=== PATIENT | female | born 1945 | race Caucasian/White ===

== ENCOUNTER 2016-11-28 11:09 | Inpatient (IN) ==
[2016-11-28] MEDS ORDERED: 0.9 % SODIUM CHLORIDE 1,000 ML IV ONE (11:49)
[2016-11-28] MEDS ORDERED: ONDANSETRON 4 MG/2 ML VIAL IV ONE (11:49)
[2016-11-28] MEDS ORDERED: cefTRIAXone 1 GM in DEXTROSE 5% IN WATER 50 ML IV ONE (11:49)
--- NOTE | 2016-11-28 11:53 | Emergency Department Note ---
Weakness HPI - General Chief complaint: Weakness Stated complaint: chills, cough, vomitting Time Seen by Provider: 11/28/16 11:48 Source: patient Mode of arrival: ambulatory Limitations: no limitations - History of Present Illness HPI Narrative: 71-year-old female with 3 week history of cough congestion fever chills nausea vomiting and weakness. She has no shortness of breath and was diagnosed with bronchitis was given steroids and breathing treatments which did help relieve the shortness of breath but now her predominant complaint is weakness. She has been seen [facility] because her primary care been out of town. She states she has not been on antibiotics for this problem here in the last 2 months chest x-ray was done yesterday at [place] which was negative for acute abnormality- reviewed report. flu swab was also negative - Related Data Home Medications Medication Instructions Recorded Confirmed Albuterol Sulfate [Proair Hfa] 8.5 gm IH Q4-6HP PRN 11/28/16 11/28/16 Benzonatate 100 mg PO TID 11/28/16 11/28/16 Levothyroxine Sodium [Synthroid] 50 mcg PO DAILY 11/28/16 11/28/16 Metoprolol Tartrate 25 mg PO QDAY 11/28/16 11/28/16 Mometasone/Formoterol [Dulera 200 2 puff IH BID 11/28/16 11/28/16 Mcg/5 Mcg Inhaler] Naproxen 500 mg PO BID 11/28/16 11/28/16 Ramipril [Altace] 1.25 mg PO DAILY 11/28/16 11/28/16 Rosuvastatin [Crestor] 10 mg PO HS 11/28/16 11/28/16 metFORMIN [Glucophage] 500 mg PO BIDCC 11/28/16 11/28/16 Allergies Allergy/AdvReac Type Severity Reaction Status Date / Time acetaminophen [From ] Allergy Severe SHOCK, Verified 11/28/16 11:13 BLOOD PRESSURE DROPS losartan [LOSARTAN] Allergy Severe Unknown Verified 11/28/16 11:13 propoxyphene [From ] Allergy Intermediate VOMITING/RA Verified 11/28/16 11:13 SH hydrochlorothiazide Allergy Mild RASH Verified 11/28/16 11:13 [HYDROCHLOROTHIAZIDE] Sulfa (Sulfonamide Allergy Mild RASH Verified 11/28/16 11:13 Antibiotics) [SULFA(SULFONAMIDE ANTIBIOTICS)] amlodipine [AMLODIPINE] AdvReac Severe Palpitation Verified 11/28/16 17:21 s codeine [CODEINE] AdvReac Mild VOMITING Verified 11/28/16 17:21 scopolamine [SCOPOLAMINE] AdvReac Mild Vomiting Verified 11/28/16 17:21 Review of Systems All systems ED: reviewed and negative except as stated. Past Medical History - Past Medical History Attestation: Yes: The following information was validated with the patient. Medical history: Reports: asthma, diabetes, hyperlipidemia, hypertension, thyroid disease Surgical history ED: Reports: appendectomy, tonsillectomy - Social History smoking status: Never smoker Exposure to secondhand smoke: Yes Physical Exam Overweight female, distraught frustrated with healthcare situation but no other distress. Normocephalic atraumatic. Conjunctiva clear sclerae white and anicteric. No nasal discharge or congestion. Oropharynx pink and moist. Postnasal drip. Neck is supple without lymphadenopathy thyromegaly or carotid bruit. Lungs are clear to auscultation bilaterally without wheezes rales rhonchi or respiratory distress. Heart is regular rhythm but somewhat tachycardic on the monitor about 115. Congruent radial pulse + 2 no pedal edema. Abdomen is soft nontender nondistended no CVA tenderness peritoneal signs or guarding. Normoactive bowel sounds. Alert oriented. Depressed mood - General Limitations: no limitations Course Vital Signs Temperature 97.3 F L 11/28/16 11:10 Pulse Rate 116 H 11/28/16 11:10 Respiratory Rate 16 11/28/16 11:10 Blood Pressure 119/69 11/28/16 11:10 Pulse Oximetry (%) 96 11/28/16 11:10 Temperature 98.4 F 11/28/16 17:42 Pulse Rate 100 H 11/28/16 20:43 Respiratory Rate 21 11/28/16 20:43 Blood Pressure 120/54 11/28/16 17:42 Pulse Oximetry (%) 94 11/28/16 20:43 Weakness - Lab Data Lab results reviewed: Yes I reviewed the patient's lab results. Result diagrams: 11/28/16 11:59 11/28/16 11:59 Lab Results 11/28/16 11/28/16 11/28/16 Range/Units 11:59 11:59 11:59 WBC 18.5 H (4.5-11.0) K/mcL RBC 4.71 (4.00-5.20) M/mcL Hgb 12.8 (12.0-15.0) g/dL Hct 39.4 (36.0-48.0) % MCV 83.6 (80.0-100.0) fL MCH 27.2 (26.0-34.0) pg MCHC 32.6 (31.0-36.0) g/dL RDW 15.7 H (11.5-14.5) % Plt Count 275 (140-440) K/mcL MPV 9.0 (7.4-10.4) fL Gran % 91.7 H (38.0-78.0) % Lymph % (Auto) 2.5 L (15.5-49.0) % [place] % (Auto) 5.8 (1.0-9.0) % Eos % (Auto) 0 (0.0-7.0) % Baso % (Auto) 0 (0.0-2.0) % Gran # 17.0 H (1.8-8.0) K/mcL Lymph # 0.5 L (1.5-4.8) K/mcL [place] # 1.1 H (0.1-0.9) K/mcL Eos # 0 (0.0-0.7) K/mcL Baso # 0 (0.0-0.3) K/mcL ESR 94 H (0-20) mm/hr VBG Lactic Acid (0.5-2.2) mmol/L Sodium 131 L (133-145) mmol/L Potassium 3.8 (3.3-5.1) mmol/L Chloride 90 L (96-108) mmol/L Carbon Dioxide 23 (22-30) mmol/L Anion Gap 18.0 H (8-16) BUN 23 (8-23) mg/dl Creatinine 1.4 H (0.6-1.1) mg/dl GFR Calculation 38 Glucose 343 H (70-105) mg/dL Hemoglobin A1c (4.0-6.0) % HGB Estim Average Glucose mg/dL Calcium 9.5 (8.6-10.4) mg/dl Total Bilirubin 0.9 (0.0-1.0) mg/dL AST 13 (0-37) U/l ALT 21 (0-40) U/l Alkaline Phosphatase 147 H (39-117) U/L C-Reactive Protein (0.0-0.8) mg/dl Total Protein 7.4 (5.9-8.4) gm/dL Albumin 4.0 (3.2-5.2) gm/dL Globulin 3.4 (2.2-3.7) gm/dL Albumin/Globulin Ratio 1.2 (1.0-2.3) Urine Color Urine Appearance Urine pH (5.0-9.0) Ur Specific [place] (1.000-1.035) Urine Protein (NEG) mg/dL Urine Glucose (UA) (NEG) mg/dL Urine Ketones (NEG) mg/dL Urine Occult Blood (<0.03) mg/dL Urine Nitrate (NEG) Urine Bilirubin (NEG) mg/dL Urine Urobilinogen (NEG) mg/dL Ur Leukocyte Esterase (NEG) /uL Urine RBC (0-1) /hpf Urine WBC (0-4) /hpf Ur Squamous Epith Cells (0-4) /hpf Urine Bacteria (0) /hpf Urine Mucus (0) /hpf Ur Culture Indicated? 11/28/16 11/28/16 11/28/16 Range/Units 11:59 11:59 12:29 WBC (4.5-11.0) K/mcL RBC (4.00-5.20) M/mcL Hgb (12.0-15.0) g/dL Hct (36.0-48.0) % MCV (80.0-100.0) fL MCH (26.0-34.0) pg MCHC (31.0-36.0) g/dL RDW (11.5-14.5) % Plt Count (140-440) K/mcL MPV (7.4-10.4) fL Gran % (38.0-78.0) % Lymph % (Auto) (15.5-49.0) % [place] % (Auto) (1.0-9.0) % Eos % (Auto) (0.0-7.0) % Baso % (Auto) (0.0-2.0) % Gran # (1.8-8.0) K/mcL Lymph # (1.5-4.8) K/mcL [place] # (0.1-0.9) K/mcL Eos # (0.0-0.7) K/mcL Baso # (0.0-0.3) K/mcL ESR (0-20) mm/hr VBG Lactic Acid (0.5-2.2) mmol/L Sodium (133-145) mmol/L Potassium (3.3-5.1) mmol/L Chloride (96-108) mmol/L Carbon Dioxide (22-30) mmol/L Anion Gap (8-16) BUN (8-23) mg/dl Creatinine (0.6-1.1) mg/dl GFR Calculation Glucose (70-105) mg/dL Hemoglobin A1c 8.7 H (4.0-6.0) % HGB Estim Average Glucose 203 mg/dL Calcium (8.6-10.4) mg/dl Total Bilirubin (0.0-1.0) mg/dL AST (0-37) U/l ALT (0-40) U/l Alkaline Phosphatase (39-117) U/L C-Reactive Protein 27.9 H (0.0-0.8) mg/dl Total Protein (5.9-8.4) gm/dL Albumin (3.2-5.2) gm/dL Globulin (2.2-3.7) gm/dL Albumin/Globulin Ratio (1.0-2.3) Urine Color Yellow Urine Appearance Turbid Urine pH 5.0 (5.0-9.0) Ur Specific [place] 1.021 (1.000-1.035) Urine Protein 100 A (NEG) mg/dL Urine Glucose (UA) 150 A (NEG) mg/dL Urine Ketones 5/tr A (NEG) mg/dL Urine Occult Blood 0.03 A (<0.03) mg/dL Urine Nitrate Neg (NEG) Urine Bilirubin Neg (NEG) mg/dL Urine Urobilinogen Neg (NEG) mg/dL Ur Leukocyte Esterase 500 A (NEG) /uL Urine RBC 61 H (0-1) /hpf Urine WBC > 182 H (0-4) /hpf Ur Squamous Epith Cells 76 H (0-4) /hpf Urine Bacteria Many A (0) /hpf Urine Mucus Mod (0) /hpf Ur Culture Indicated? No 11/28/16 Range/Units 13:07 WBC (4.5-11.0) K/mcL RBC (4.00-5.20) M/mcL Hgb (12.0-15.0) g/dL Hct (36.0-48.0) % MCV (80.0-100.0) fL MCH (26.0-34.0) pg MCHC (31.0-36.0) g/dL RDW (11.5-14.5) % Plt Count (140-440) K/mcL MPV (7.4-10.4) fL Gran % (38.0-78.0) % Lymph % (Auto) (15.5-49.0) % [place] % (Auto) (1.0-9.0) % Eos % (Auto) (0.0-7.0) % Baso % (Auto) (0.0-2.0) % Gran # (1.8-8.0) K/mcL Lymph # (1.5-4.8) K/mcL [place] # (0.1-0.9) K/mcL Eos # (0.0-0.7) K/mcL Baso # (0.0-0.3) K/mcL ESR (0-20) mm/hr VBG Lactic Acid 1.6 (0.5-2.2) mmol/L Sodium (133-145) mmol/L Potassium (3.3-5.1) mmol/L Chloride (96-108) mmol/L Carbon Dioxide (22-30) mmol/L Anion Gap (8-16) BUN (8-23) mg/dl Creatinine (0.6-1.1) mg/dl GFR Calculation Glucose (70-105) mg/dL Hemoglobin A1c (4.0-6.0) % HGB Estim Average Glucose mg/dL Calcium (8.6-10.4) mg/dl Total Bilirubin (0.0-1.0) mg/dL AST (0-37) U/l ALT (0-40) U/l Alkaline Phosphatase (39-117) U/L C-Reactive Protein (0.0-0.8) mg/dl Total Protein (5.9-8.4) gm/dL Albumin (3.2-5.2) gm/dL Globulin (2.2-3.7) gm/dL Albumin/Globulin Ratio (1.0-2.3) Urine Color Urine Appearance Urine pH (5.0-9.0) Ur Specific [place] (1.000-1.035) Urine Protein (NEG) mg/dL Urine Glucose (UA) (NEG) mg/dL Urine Ketones (NEG) mg/dL Urine Occult Blood (<0.03) mg/dL Urine Nitrate (NEG) Urine Bilirubin (NEG) mg/dL Urine Urobilinogen (NEG) mg/dL Ur Leukocyte Esterase (NEG) /uL Urine RBC (0-1) /hpf Urine WBC (0-4) /hpf Ur Squamous Epith Cells (0-4) /hpf Urine Bacteria (0) /hpf Urine Mucus (0) /hpf Ur Culture Indicated? Disposition Clinical Impression: Sepsis Qualifiers: Sepsis type: sepsis due to unspecified organism Qualified Code(s): A41.9 - Sepsis, unspecified organism UTI (urinary tract infection) Qualifiers: Urinary tract infection type: acute cystitis Hematuria presence: with hematuria Qualified Code(s): N30.01 - Acute cystitis with hematuria Summary: Patient initially worked up for sepsis because of fever significant weakness and low blood pressure. Started fluid resuscitation while getting laboratory including lactic acid and cultures Found to have a UTI with sepsis. Start antibiotics. Discussed case with Dr. Floyd who agreed to accept patient in transfer to ICU for further care Anesthesia called to start central line prior to admission Disposition: Xfer As Inpt ([facility]) Condition: Critical
[2016-11-28 12:34] LABS: Basophils # (Auto) 0 K/mcL (0.0-0.3); Basophils % (Auto) 0 % (0.0-2.0); Eosinophils # (Auto) 0 K/mcL (0.0-0.7); Eosinophils % (Auto) 0 % (0.0-7.0); Granulocytes % (Auto) 91.7 % (38.0-78.0); Lymphocytes # (Auto) 0.5 K/mcL (1.5-4.8); Lymphocytes % (Auto) 2.5 % (15.5-49.0); Mean Cell Volume 83.6 fL (80.0-100.0); Mean Corpuscular HGB Conc 32.6 g/dL (31.0-36.0); Mean Corpuscular Hemoglobin 27.2 pg (26.0-34.0); Monocytes # (Auto) 1.1 K/mcL (0.1-0.9); Monocytes % (Auto) 5.8 % (1.0-9.0); Platelet Count 275 K/mcL (140-440); RBC 4.71 M/mcL (4.00-5.20); Red Cell Distribution Width 15.7 % (11.5-14.5)
[2016-11-28 12:49] LABS: Appearance,Urine TURBID; Bacteria,Urine MANY /hpf (0); Bilirubin,Urine NEG (NEG); Color,Urine YELLOW; Glucose,Urine (UA) 150 mg/dL (NEG); Leukocyte Esterase,Urine 500 /uL (NEG); Mucus,Urine MOD /hpf (0); Nitrate,Urine NEG (NEG); Protein,Urine 100 mg/dL (NEG); Specific Gravity,Urine 1.021 (1.000-1.035); Urine Blood 0.03 mg/dL (<0.03); Urine RBC 61 /hpf (0-1); Urine Squamous Epithelial Cell 76 /hpf (0-4); Urine WBC > 182 /hpf (0-4); Urobilinogen,Urine NEG (NEG)
[2016-11-28 13:04] LABS: ALT/SGPT 21 U/l (0-40); Albumin/Globulin Ratio 1.2 (1.0-2.3); Alkaline Phosphatase 147 U/L (39-117); Blood Urea Nitrogen 23 mg/dl (8-23)
[2016-11-28] MEDS ORDERED: 0.9 % SODIUM CHLORIDE 2,000 ML IV ONE (13:49)
[2016-11-28] MEDS ORDERED: LEVOFLOXACIN 500 MG/100 ML BAG IV ONE (13:56)
--- NOTE | 2016-11-28 15:43 | XRay Report ---
HISTORY: Reason for Exam:post central line placement FINDINGS: A right internal jugular catheter has been inserted into the superior vena cava. No pneumothorax or pleural effusion are present. The lungs are clear. The heart is borderline enlarged but magnified by AP technique. There is no congestive heart failure. IMPRESSION: No complication following central line placement Interpreted and Authenticated by: Marlon Logan 11/28/16
[2016-11-28] MEDS ORDERED: MAGNESIUM SULFATE 2 GM/50 ML BAG IV PRN (15:46)
[2016-11-28] MEDS ORDERED: ACETAMINOPHEN 1,000 MG/100 ML BOTTLE IV PRN (15:46)
[2016-11-28] MEDS ORDERED: ACETAMINOPHEN 325 MG TABLET PO PRN (15:46)
[2016-11-28] MEDS ORDERED: VANCOMYCIN PER PHARMACY IV ONE (15:46)
[2016-11-28] MEDS ORDERED: POTASSIUM CHLORIDE 20 MEQ PACKET PO PRN (15:46)
[2016-11-28] MEDS ORDERED: NALOXONE HCL 0.4 MG/ML VIAL IV ONE (15:49)
[2016-11-28] MEDS ORDERED: DEXTROSE 50% 50 ML VIAL IV PRN (15:51)
[2016-11-28] MEDS ORDERED: VASOPRESSIN 20 UNIT in DEXTROSE 5% IN WATER 99 ML IV PRN (16:00)
[2016-11-28] MEDS ORDERED: NOREPINEPHRINE BITARTRATE 16 MG in 0.9 % SODIUM CHLORIDE 234 ML IV PRN (16:00)
[2016-11-28 16:25] LABS: C-Reactive Protein 27.9 mg/dl (0.0-0.8)
--- NOTE | 2016-11-28 16:41 | Ultrasound Report ---
History: Urinary tract infection and obstructive uropathy Findings: The right kidney measures 4.6 x 4.9 x 9.4 cm. The left measures 5.0 x 6.1 x 11.6 cm. There is no evidence of mass, cyst, calculus, hydronephrosis or inflammation in either kidney. Doppler shows flow of urine through both ureters into the bladder. Before voiding the bladder contained 495 cc of urine. There is no mass within the lumen. After voiding there was complete emptying. Impression: Normal exam Dr. Romero was called with results Interpreted and Authenticated by: Marlon Logan 11/28/16
[2016-11-28] MEDS: 0.9 % SODIUM CHLORIDE 1,000 ML IV SCH (17:54)
[2016-11-28] MEDS: INSULIN LISPRO 1 UNIT/0.01 ML UNIT SQ SCH ×2 (17:57→22:20)
[2016-11-28] MEDS: CEFEPIME 2 GM in DEXTROSE 5% IN WATER 50 ML IV SCH (17:57)
[2016-11-28] MEDS ORDERED: LEVOFLOXACIN 250 MG/50 ML BAG IV ONE (18:00)
[2016-11-28 18:15] LABS: Hemoglobin A1C 8.7 % HGB (4.0-6.0)
[2016-11-28] MEDS: VANCOMYCIN 1,500 MG in 0.9 % SODIUM CHLORIDE 500 ML IV SCH (19:10)
[2016-11-28] MEDS ORDERED: traMADol 50 MG TABLET PO PRN (20:12)
[2016-11-28] MEDS: IPRATROPIUM/ALBUTEROL 3 ML AMPUL.NEB NEB SCH ×2 (20:20→23:20)
[2016-11-28] MEDS: BUDESONIDE 0.5 MG/2 ML AMPUL.NEB NEB SCH (20:41)
[2016-11-28] MEDS ORDERED: SENNOSIDES/DOCUSATE SODIUM 1 TAB TABLET PO SCH (21:00)
[2016-11-28] MEDS: HEPARIN 5,000 UNIT/ML VIAL SQ SCH (22:19)
[2016-11-28] MEDS: DOCUSATE SODIUM 100 MG CAPSULE PO SCH (22:20)
[2016-11-28] MEDS: 0.9 % SODIUM CHLORIDE 10 ML SYRINGE IV SCH (22:21)
[2016-11-29] MEDS: IPRATROPIUM/ALBUTEROL 3 ML AMPUL.NEB NEB SCH ×6 (02:55→23:23)
--- NOTE | 2016-11-29 05:49 | History and Physical Report ---
DATE OF ADMISSION: 11/28/2016 DATE OF ADMISSION: 11/28/2016 REASON FOR ADMISSION: Shortness of breath, nausea, vomiting, and weakness. HISTORY OF CHIEF COMPLAINT: Rosa is a 71-year-old who comes to [facility] emergency room with roughly a few weeks onset of worsening shortness of breath, weakness, fatigue, lethargy along with associated nausea. The patient was diagnosed with bronchitis at [facility] and was started on prednisone. However, the symptoms after initial improvement continued to deteriorate wherein she was unable to perform activities of daily living due to severe exhaustion and shortness of breath. She, however, denies PND, orthopnea, diarrhea. She has difficulty urinating over the last couple of days. She further denies abdominal pain, chest pain, palpitation, headache, or photophobia. She endorses to shaking chills, drenching sweats, and fever over the last 24 hours. She also had mild left flank pain which was short-lived and episodic over the last 24 hours. Initial workup in the ER was significant for pyuria along with a white count over 18,500, blood pressures in the 60s. The patient was promptly started on crystalloids central line was placed in the ER and was continued resuscitation until systolics improved to around 100. In the light of septic shock, hospitalist service was consulted. At the time of examination, the patient is able to answer some of the questions. She is fairly distressed but lucid, cooperative. REVIEW OF SYSTEMS: She was able to participate in the review of systems. A 10-point review of system was performed and is negative except the ones discussed above. PAST MEDICAL HISTORY: 1. Hyperlipidemia. 2. Diabetes. 3. Degenerative joint disease. 4. Hypothyroidism. 5. Bronchitis. 6. Hypertension. CURRENT MEDICATION: Metoprolol 25. Ramipril 1.25. Albuterol as needed. Levothyroxine 50. Naproxen 500. Metformin 500 mg twice daily. Benzonatate 100 3 times per day. Dulera inhaled twice daily. Rosuvastatin 10. ALLERGIES: 1. AMLODIPINE. 2. LOSARTAN. 3. CODEINE. 4. PROPOXYPHENE. 5. SCOPOLAMINE. 6. HYDROCHLOROTHIAZIDE. 7. SULFA. SOCIAL HISTORY: The patient lives in the [place], fairly independently, alone. She has a son who lives nearby and frequently checks on her. No history of smoking or alcoholism. 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 FULL CODE STATUS. PRIMARY CARE PHYSICIAN: She sees primary care physician Gino Ordaz MD. FAMILY HISTORY: Significant for coronary artery disease and alcoholism in multiple family members on the paternal side. PHYSICAL EXAMINATION: GENERAL: The patient is in a fair amount of distress, short of breath; however, cooperative. BMI 41.85, height 5 feet 2 inches. VITAL SIGNS: Blood pressure improving from 80s/ 66 to 105/66, respiratory rate 27, temperature 97.5, pulse 103, saturations 92 percent on room air. HEENT: Pupils symmetric. Oral cavity is dry. No ear or nose discharge. Head is normocephalic and atraumatic. NECK: No lymphadenopathy, bruit. CHEST: S1, S2, tachycardia. ESM grade 1. Diminished breath sounds bilateral bases, expiratory rhonchi. ABDOMEN: Soft and nontender. LOWER EXTREMITIES: No cyanosis or clubbing. No joint swelling. Normal range of motion of the joints. No lymphedema. SKIN: No suspicious lesions. PSYCHIATRIC: Anxious, fatigued, but cooperative. No agitation. NEURO: Nonfocal. Limited neuro exam revealed normal higher function. LABS AND IMAGING: White count 18.5, hemoglobin 12.8, neutrophils 92 percent. ESR 94. Lactic acid 1.6, sodium 131, potassium 3.8, creatinine 1.4, BUN 23. A1c 8.7. CRP 27. UA is significant pyuria and many bacteria. ASSESSMENT AND PLAN: A 71-year-old admitted with complicated urinary tract infection and severe sepsis/septic shock and end-organ dysfunction. Initial CRAIG II score over 16. 1. Septic shock. Continue crystalloids, target MAP over 65, use vasopressors as indicated. Continue broad antibiotic coverage including levofloxacin, cefepime, vancomycin for empiric coverage of enterococci and gram negatives. Antibiotics will be deescalated based on culture results. 2. Complicated urinary tract infection. Negative renal ultrasound for obstructive uropathy/pyelo. Continue antibiotic coverage. 3. Mild acute kidney injury. Continue monitoring renal function, likely secondary to sepsis end organ effect. Baseline creatinine 0.6. 4. Poorly controlled diabetes mellitus type 2 with A1c 8.7. Continue sitagliptin/prandial insulin. 5. History of hyperlipidemia. Continue statin. 6. Hypothyroidism. Continue thyroxine. 7. Hypertension. At this time, all medications will be held until the patient's septic shock resolves and improvement end organ perfusion. PLAN FOR TODAY: 1. Admit in ICU in light of septic shock and multiple end organ dysfunction. 2. Broad antibiotic coverage. 3. Close hemodynamic monitoring including renal function monitoring. 4. Preexisting medical condition management as above. TIME SPENT: Over 35 minutes critical care on management of septic shock, central line has been secured. Initiate vasopressors including Vasopressin and Levophed to keep MAP at goal. Additional 55 minutes on history and physical. AA: Job ID: [id number] Doc ID: [id number] Savage Porter MD MTDD
[2016-11-29] MEDS: 0.9 % SODIUM CHLORIDE 10 ML SYRINGE IV SCH ×3 (05:55→21:53)
[2016-11-29] MEDS: ONDANSETRON 4 MG/2 ML VIAL IV PRN ×2 (06:14→14:07)
[2016-11-29 06:34] LABS: Mean Cell Volume 85.4 fL (80.0-100.0); Mean Corpuscular HGB Conc 32.6 g/dL (31.0-36.0); Mean Corpuscular Hemoglobin 27.8 pg (26.0-34.0); Platelet Count 202 K/mcL (140-440); RBC 3.59 M/mcL (4.00-5.20); Red Cell Distribution Width 15.5 % (11.5-14.5)
[2016-11-29 06:54] LABS: ALT/SGPT 14 U/l (0-40); Albumin/Globulin Ratio 1.1 (1.0-2.3); Alkaline Phosphatase 98 U/L (39-117); Bilirubin,Direct < 0.2 mg/dL (0.0-0.3); Blood Urea Nitrogen 16 mg/dl (8-23); Gamma Glutamyl Transpeptidase 84 U/L (5-36); Magnesium 1.4 mg/dL (1.6-2.5); Phosphorous 2.3 mg/dL (2.7-4.5); Uric Acid 4.9 mg/dL (2.5-8.0)
[2016-11-29] MEDS: INSULIN LISPRO 1 UNIT/0.01 ML UNIT SQ SCH ×4 (07:11→21:51)
[2016-11-29 07:49] LABS: Band Neutrophils % 3 % (0-10); Lymphocytes % 6 % (15-49); Monocytes % (Manual) 10 % (1-9); Platelet Estimate NORMAL (NORMAL); RBC Morphology NORMAL (NORMAL); Segmented Neutrophils % 81 % (38-78)
[2016-11-29] MEDS: HEPARIN 5,000 UNIT/ML VIAL SQ SCH (08:09)
[2016-11-29] MEDS: DOCUSATE SODIUM 100 MG CAPSULE PO SCH (08:10)
[2016-11-29] MEDS: CEFEPIME 2 GM in DEXTROSE 5% IN WATER 50 ML IV SCH (08:11)
[2016-11-29] MEDS: BUDESONIDE 0.5 MG/2 ML AMPUL.NEB NEB SCH (08:31)
[2016-11-29] MEDS ORDERED: sitaGLIPtin 100 MG TABLET PO SCH (09:00)
[2016-11-29] MEDS ORDERED: MULTIVIT,THER IRON,CA,FA & MIN 1 TABLET PO SCH (09:00)
[2016-11-29] MEDS: VANCOMYCIN 1,500 MG in 0.9 % SODIUM CHLORIDE 500 ML IV SCH (12:22)
[2016-11-29] MEDS: 0.9 % SODIUM CHLORIDE 1,000 ML IV SCH (12:29)
--- NOTE | 2016-11-29 14:52 | Internal Med Progress Note ---
Medical - PN: Subj Patient information: Note initiated : 11/29/16 at 2:49 pm Service Date, if different from initiated Date: [] Patient: Rosa Wilder 71 y/o F admitted on 11/28/16 for Chills, Cough, Vomiting/UTI, Severe Sepsis. Chief Complaint: [] Interval history: 11/28- patient admitted with septic shock/complicated UTI ith extensive pyuria. Admitted to ICU. Aggressive crystalloids to keep map at goal. negative renal ultrasound. await culture sensitivities. Septic shock management per guidelines. white count 18.5. acute renal failure creatinine 1.4 11/29- patient doing well. No overnight events. No concerns per staff. improved mentation. persistent tachycardia but stable hemodynamics. Map at goal. escherichia coli on urine culture. white count down to11.5. creatinine improved to 1.1. low phosphorus and magnesium start replacement. - Constitutional Vitals: Vital Signs Temp Pulse Resp BP Pulse Ox 99.2 F 113 H 29 H 121/70 93 11/29/16 12:00 11/29/16 12:00 11/29/16 12:00 11/29/16 12:00 11/29/16 12:00 Period Temp Pulse Resp BP Sys/Tovar Pulse Ox Last 24 Hr 97.3 F-102.7 F 89-124 18-29 88-145/46-90 90-99 Intake and Output 11/29/16 11/29/16 11/29/16 05:59 13:59 21:59 Intake Total 725 / 725 1079 / 1079 Output Total 400 / 400 900 / 900 Balance 325 / 325 179 / 179 Intake & Output: Intake & Output 11/29/16 11/29/16 11/29/16 05:59 13:59 21:59 Intake Total 725 / 725 1079 / 1079 Output Total 400 / 400 900 / 900 Balance 325 / 325 179 / 179 Intake: IV 550 / 550 1079 / 1079 Sodium Chloride 0.9% 1, 929 / 929 000 ml @ 50 mls/hr IV . Q20H [facility] Rx#:[id number] Dextrose 5% in Water 50 50 / 50 50 / 50 ml @ 100 mls/hr IV DAILY [facility] with Maxipime 2 gm Rx #:[id number] Sodium Chloride 0.9% 500 500 / 500 ml @ 333.3 mls/hr IV DAILY [facility] with Vancomycin 1,500 mg Rx#:[id number] Oral 175 / 175 Output: Void Amount 400 / 400 900 / 900 General appearance: cooperative, no acute distress Exam: clinically improved nonlabored breathing Nontender nondistended abdomen No pallor lymphedema minimal anxiety Medical - PN: Obj Da - Labs CBC & Chem 7: 11/29/16 03:53 11/29/16 03:53 Labs: Abnormal Lab Results 11/29/16 11/29/16 03:53 03:53 WBC 11.5 H RBC 3.59 L Hgb 10.0 L Hct 30.7 L RDW 15.5 H Seg Neutrophils % 81 H Lymphocytes % 6 L Monocytes % (Manual) 10 H Carbon Dioxide 21 L Anion Gap 17.0 H Glucose 255 H Calcium 8.0 L Phosphorus 2.3 L Magnesium 1.4 L GGT 84 H Total Protein 5.8 L Albumin 3.0 L Meds: Medications Albuterol/Ipratropium (Duoneb) 3 ml NEB Q4HRT [facility] Last Admin: 11/29/16 11:20 Dose: 3 ml Budesonide (Pulmicort) 0.5 mg NEB Q12 [facility] Last Admin: 11/29/16 08:31 Dose: 0.5 mg Dextrose (Dextrose 50%) 0 ml IV UD PRN PRN Reason: Hypoglycemia Diagnostic Test (Pha) (Accu-Chek) 1 each FS ACHS [facility] Last Admin: 11/29/16 12:21 Dose: 1 each Docusate Sodium (Colace) 100 mg PO BID [facility] Last Admin: 11/29/16 08:10 Dose: 100 mg Heparin Sodium (Porcine) (Heparin) 5,000 unit SQ Q12 [facility] Last Admin: 11/29/16 08:09 Dose: 5,000 unit Cefepime HCl 2 gm/ Dextrose 50 mls @ 100 mls/hr IV DAILY [facility] Last Infusion: 11/29/16 12:34 Dose: Infused Levofloxacin (Levaquin) 750 mg in 150 mls @ 100 mls/hr IV Q48H [facility] Magnesium Sulfate (Magnesium Sulfate) 2 gm in 50 mls @ 50 mls/hr IV UD PRN PRN Reason: MG = or < 1.7 Last Infusion: 11/29/16 12:33 Dose: Infused Norepinephrine Bitartrate 16 (mg/ Sodium Chloride) 250 mls @ 9.37 mls/hr IV Q24HP PRN; Protocol; 10 MCG/MIN PRN Reason: Titrate to SBP < 180,DBP < 110 Sodium Chloride (Sodium Chloride 0.9%) 1,000 mls @ 50 mls/hr IV .Q20H [facility] Stop: 12/01/16 03:59 Last Admin: 11/29/16 12:29 Dose: 50 mls/hr Vasopressin 20 unit/ Dextrose 100 mls @ 12 mls/hr IV Q8HP PRN; Protocol; 0.04 UNIT/MIN PRN Reason: Titrate to SBP < 180,DBP < 110 Vancomycin HCl 1,500 mg/ (Sodium Chloride) 500 mls @ 333.3 mls/hr IV DAILY [facility] Last Admin: 11/29/16 12:22 Dose: 333.3 mls/hr Insulin Human Lispro (Humalog) 0 unit SQ ACHS [facility] PRN Reason: Protocol Last Admin: 11/29/16 12:21 Dose: 4 unit Iron Carb/Multivit/Airplane Patrol Pilot/Folic Acid (Multivitamin W/Minerals) 1 tab PO DAILY [facility] Last Admin: 11/29/16 08:10 Dose: 1 tab Ondansetron HCl (Zofran) 4 mg IV Q4-6HP PRN PRN Reason: Nausea And Vomiting Last Admin: 11/29/16 14:07 Dose: 4 mg Potassium Chloride (Klor-Con) 40 meq PO DAILYP PRN PRN Reason: K+ < 3.5 Senna/Docusate Sodium (Senna Plus Tablet) 1 tab PO HS [facility] Last Admin: 11/28/16 22:20 Dose: 1 tab Sitagliptin Phosphate (Januvia) 100 mg PO DAILY [facility] Last Admin: 11/29/16 08:16 Dose: 100 mg Sodium Chloride (Saline Flush) 10 ml IV Q8 [facility] Last Admin: 11/29/16 12:33 Dose: 10 ml Tramadol HCl (Ultram) 50 mg PO Q4-6HP PRN PRN Reason: Pain Last Admin: 11/28/16 20:40 Dose: 50 mg Medical - PN: A/P - Time Spent With Patient Total time spent is greater than 50% in coordination of care (as documented) at patient's floor/unit and/or counseling patient: 25 - 35 minutes (1) Severe sepsis with acute organ dysfunction Status: Acute Assessment and plan: * Severe sepsis acute organ dysfunction including acute renal failure. On broad antibiotic coverage * Complicated Escherichia coli UTI-Clinically improving on antibiotic coverage. Continue cefepime/Levaquin. DC vancomycin * dM type II on prandial insulin * history of hypertension restart home medsWith holding parameters * hyperlipidemia on Crestor * DVT prophylaxis on heparin Plan * Antibiotic coverage * sepsis management per guidelines * pre-existing medical condition management as above * Transfer to telemetry Current Visit: Yes Medical - PN: Qual - VTE Deep Vein Thrombosis/Pulmonary Embolism Present on Admission: No
[2016-11-29] MEDS ORDERED: VASOPRESSIN 20 UNIT in DEXTROSE 5% IN WATER 99 ML IV PRN (14:59)
[2016-11-29] MEDS ORDERED: POTASSIUM CHLORIDE 20 MEQ PACKET PO PRN (14:59)
[2016-11-29] MEDS ORDERED: DEXTROSE 50% 50 ML VIAL IV PRN (14:59)
[2016-11-29] MEDS ORDERED: ONDANSETRON 4 MG/2 ML VIAL IV PRN (14:59)
[2016-11-29] MEDS ORDERED: MAGNESIUM SULFATE 2 GM/50 ML BAG IV PRN (14:59)
[2016-11-29] MEDS ORDERED: traMADol 50 MG TABLET PO PRN (14:59)
[2016-11-29] MEDS ORDERED: IBUPROFEN 200 MG TABLET PO PRN (15:43)
[2016-11-29] MEDS ORDERED: SENNOSIDES/DOCUSATE SODIUM 1 TAB TABLET PO SCH (21:00)
[2016-11-29] MEDS ORDERED: DOCUSATE SODIUM 100 MG CAPSULE PO SCH (21:00)
[2016-11-29] MEDS ORDERED: NEUTRA PHOS 1 PACKET PO SCH (21:00)
[2016-11-29] MEDS ORDERED: HEPARIN 5,000 UNIT/ML VIAL SQ SCH (21:00)
[2016-11-29] MEDS ORDERED: BUDESONIDE 0.5 MG/2 ML AMPUL.NEB NEB SCH (21:00)
[2016-11-30] MEDS: IPRATROPIUM/ALBUTEROL 3 ML AMPUL.NEB NEB SCH ×4 (03:55→15:07)
[2016-11-30] MEDS: 0.9 % SODIUM CHLORIDE 10 ML SYRINGE IV SCH ×3 (04:04→22:17)
[2016-11-30 05:08] LABS: Mean Cell Volume 84.3 fL (80.0-100.0); Mean Corpuscular HGB Conc 32.9 g/dL (31.0-36.0); Mean Corpuscular Hemoglobin 27.7 pg (26.0-34.0); Platelet Count 203 K/mcL (140-440); RBC 3.74 M/mcL (4.00-5.20); Red Cell Distribution Width 15.8 % (11.5-14.5)
[2016-11-30 05:32] LABS: ALT/SGPT 16 U/l (0-40); Albumin 3.2 gm/dL (3.2-5.2); Albumin/Globulin Ratio 0.9 (1.0-2.3); Alkaline Phosphatase 116 U/L (39-117); Bilirubin,Direct < 0.2 mg/dL (0.0-0.3); Blood Urea Nitrogen 10 mg/dl (8-23); Gamma Glutamyl Transpeptidase 78 U/L (5-36); Magnesium 2.3 mg/dL (1.6-2.5); Phosphorous 2.5 mg/dL (2.7-4.5); Uric Acid 4.2 mg/dL (2.5-8.0)
[2016-11-30] MEDS ORDERED: VASOPRESSIN 20 UNIT in DEXTROSE 5% IN WATER 99 ML IV PRN (07:24)
[2016-11-30] MEDS ORDERED: IBUPROFEN 200 MG TABLET PO PRN (07:24)
[2016-11-30] MEDS ORDERED: MAGNESIUM SULFATE 2 GM/50 ML BAG IV PRN (07:24)
[2016-11-30] MEDS ORDERED: DEXTROSE 50% 50 ML VIAL IV PRN (07:24)
[2016-11-30] MEDS ORDERED: POTASSIUM CHLORIDE 20 MEQ PACKET PO PRN (07:24)
[2016-11-30] MEDS ORDERED: traMADol 50 MG TABLET PO PRN (07:24)
[2016-11-30] MEDS ORDERED: DIGOXIN 500 MCG/2 ML AMPUL IV ONE (07:24)
[2016-11-30] MEDS ORDERED: METOPROLOL TARTRATE 5 MG/5 ML VIAL IV SCH (07:25)
[2016-11-30] MEDS ORDERED: METOPROLOL TARTRATE 50 MG TABLET PO ONE (07:28)
[2016-11-30 07:43] LABS: Band Neutrophils % 1 % (0-10); Lymphocytes % 8 % (15-49); Monocytes % (Manual) 10 % (1-9); Platelet Estimate NORMAL (NORMAL); RBC Morphology NORMAL (NORMAL); Segmented Neutrophils % 81 % (38-78)
[2016-11-30] MEDS: METOPROLOL TARTRATE 5 MG/5 ML VIAL IV SCH ×2 (07:54→08:10)
[2016-11-30] MEDS: INSULIN LISPRO 1 UNIT/0.01 ML UNIT SQ SCH ×4 (08:21→22:12)
--- NOTE | 2016-11-30 08:55 | XRay Report ---
HISTORY: Reason for Exam:Interval Change- sob FINDINGS: The lungs are clear and well expanded. The heart size is mildly enlarged but magnified by portable technique. There is no congestive heart failure or pleural effusion. The right internal jugular catheter is well-positioned and there is no pneumothorax or widening of the mediastinum. There has been no significant change since 11/28/16. IMPRESSION: No acute abnormality Interpreted and Authenticated by: Marlon Logan 11/30/16
[2016-11-30] MEDS ORDERED: CEFEPIME 2 GM in DEXTROSE 5% IN WATER 50 ML IV SCH (09:00)
[2016-11-30] MEDS ORDERED: BUDESONIDE 0.5 MG/2 ML AMPUL.NEB NEB SCH (09:00)
[2016-11-30] MEDS ORDERED: LEVOFLOXACIN 750 MG/150 ML BAG IV SCH ×3 (09:00)
[2016-11-30] MEDS ORDERED: sitaGLIPtin 100 MG TABLET PO SCH (09:00)
[2016-11-30] MEDS ORDERED: METOPROLOL TARTRATE 25 MG PO SCH (09:00)
[2016-11-30] MEDS: CEFEPIME 2 GM in DEXTROSE 5% IN WATER 50 ML IV SCH (09:00)
[2016-11-30] MEDS ORDERED: MULTIVIT,THER IRON,CA,FA & MIN 1 TABLET PO SCH (09:00)
[2016-11-30] MEDS: LISINOPRIL 5 MG TABLET PO SCH (09:14)
[2016-11-30] MEDS: ONDANSETRON 4 MG/2 ML VIAL IV PRN ×2 (10:20→18:01)
[2016-11-30] MEDS: HEPARIN 5,000 UNIT/ML VIAL SQ SCH ×2 (10:20→22:11)
[2016-11-30] MEDS: sitaGLIPtin 50 MG TABLET PO SCH (10:21)
[2016-11-30] MEDS: LEVOTHYROXINE 50 MCG TABLET PO SCH (10:21)
[2016-11-30] MEDS: NEUTRA PHOS 1 PACKET PO SCH ×2 (10:21→22:12)
[2016-11-30] MEDS: MULTIVIT,THER IRON,CA,FA & MIN 1 TABLET PO SCH (10:22)
[2016-11-30] MEDS: metFORMIN 500 MG TABLET PO SCH ×2 (10:22→16:40)
[2016-11-30] MEDS: DOCUSATE SODIUM 100 MG CAPSULE PO SCH ×2 (10:23→22:11)
--- NOTE | 2016-11-30 11:45 | Internal Med Progress Note ---
Medical - PN: Subj Patient information: Note initiated : 11/30/16 at 11:42 am Service Date, if different from initiated Date: [] Patient: Rosa Wilder 71 y/o F admitted on 11/28/16 for Chills, Cough, Vomiting/UTI, Severe Sepsis. Chief Complaint: [] Interval history: 11/28- patient admitted with septic shock/complicated UTI ith extensive pyuria. Admitted to ICU. Aggressive crystalloids to keep map at goal. negative renal ultrasound. await culture sensitivities. Septic shock management per guidelines. white count 18.5. acute renal failure creatinine 1.4 11/29- patient doing well. No overnight events. No concerns per staff. improved mentation. persistent tachycardia but stable hemodynamics. Map at goal. escherichia coli on urine culture. white count down to11.5. creatinine improved to 1.1. low phosphorus and magnesium start replacement. 11/30- patient complaining of chest palpitation. New onset A. fib with RVR. Transfer to telemetry. And started on metoprolol along with digoxin load. Check echocardiogram. likely precipitated by his sepsis. continue telemetry monitoring and rate control measures. Overall clinically improved with white count down to 8000 from 18. Creatinine improved to 1.2. electrolytes improved with replacement. Patient has been anxious but afebrile and hemodynamically stable. No overnight fever chills or concerns per staff other than chest palpitation during episodes of RVR. - Constitutional Vitals: Vital Signs Temp Pulse Resp BP Pulse Ox 98.0 F 95 H 18 103/69 98 11/30/16 06:35 11/30/16 06:35 11/30/16 06:35 11/30/16 06:35 11/30/16 06:35 Period Temp Pulse Resp BP Sys/Tovar Pulse Ox Last 24 Hr 97.1 F-99.2 F 77-119 18-29 103-147/47-79 93-98 Intake and Output 11/29/16 11/30/16 11/30/16 21:59 05:59 13:59 Intake Total 970 / 970 700 / 700 1000 / 1000 Output Total 1375 / 1375 1900 / 1900 601 / 601 Balance -405 / -405 -1200 / -1200 399 / 399 Weight 216 lb 9.6 oz 218 lb Intake & Output: Intake & Output 0311/30/16 11/30/16 21:59 05:59 13:59 Intake Total 970 / 970 700 / 700 1000 / 1000 Output Total 1375 / 1375 1900 / 1900 601 / 601 Balance -405 / -405 -1200 / -1200 399 / 399 Weight 216 lb 9.6 oz 218 lb Intake: IV 500 / 500 1000 / 1000 Sodium Chloride 0.9% 500 500 / 500 ml @ 333.3 mls/hr IV DAILY [facility] with Vancomycin 1,500 mg Rx#:[id number] Oral 470 / 470 700 / 700 Output: Void Amount 1375 / 1375 1900 / 1900 600 / 600 # of times incontinent of urine Other: Meal applesauce Percent of Meal Consumed 100% Feeding Ability Independent # Voids 1 1 General appearance: cooperative, no acute distress Exam: complains of chest palpitation nonlabored breathing Minimal dizziness/Lightheadedness improved rate control A. fib on telemetry no lymphedema Medical - PN: Obj Da - Labs CBC & Chem 7: 11/30/16 04:00 11/30/16 04:00 Labs: Abnormal Lab Results 11/30/16 11/30/16 11/29/16 04:00 04:00 03:53 WBC RBC 3.74 L Hgb 10.4 L Hct 31.5 L RDW 15.8 H Seg Neutrophils % 81 H Lymphocytes % 8 L Monocytes % (Manual) 10 H Carbon Dioxide 21 L Anion Gap 17.0 H Creatinine 1.2 H Glucose 307 H 255 H Calcium 8.0 L Phosphorus 2.5 L 2.3 L Magnesium 1.4 L GGT 78 H 84 H Total Protein 5.8 L Albumin 3.0 L Albumin/Globulin Ratio 0.9 L 11/29/16 03:53 WBC 11.5 H RBC 3.59 L Hgb 10.0 L Hct 30.7 L RDW 15.5 H Seg Neutrophils % 81 H Lymphocytes % 6 L Monocytes % (Manual) 10 H Carbon Dioxide Anion Gap Creatinine Glucose Calcium Phosphorus Magnesium GGT Total Protein Albumin Albumin/Globulin Ratio Meds: Medications Albuterol/Ipratropium (Duoneb) 3 ml NEB Q4HRT [facility] Budesonide (Pulmicort) 0.5 mg NEB Q12 [facility] Last Admin: 11/30/16 07:51 Dose: Not Given Dextrose (Dextrose 50%) 0 ml IV UD PRN PRN Reason: Hypoglycemia Diagnostic Test (Pha) (Accu-Chek) 1 each FS ACHS [facility] Last Admin: 11/30/16 08:16 Dose: 1 each Docusate Sodium (Colace) 100 mg PO BID [facility] Last Admin: 11/30/16 10:23 Dose: 100 mg Heparin Sodium (Porcine) (Heparin) 5,000 unit SQ Q12 [facility] Last Admin: 11/30/16 10:20 Dose: 5,000 unit Cefepime HCl 2 gm/ Dextrose 50 mls @ 100 mls/hr IV DAILY [facility] Last Admin: 11/30/16 09:00 Dose: 100 mls/hr Levofloxacin (Levaquin) 750 mg in 150 mls @ 100 mls/hr IV Q48H [facility] Last Admin: 11/30/16 09:00 Dose: 100 mls/hr Magnesium Sulfate (Magnesium Sulfate) 2 gm in 50 mls @ 50 mls/hr IV UD PRN PRN Reason: MG = or < 1.7 Vasopressin 20 unit/ Dextrose 100 mls @ 12 mls/hr IV Q8HP PRN; Protocol; 0.04 UNIT/MIN PRN Reason: Titrate to SBP < 180,DBP < 110 Ibuprofen (Motrin) 400 mg PO Q4HP PRN PRN Reason: Pain Last Admin: 11/30/16 10:21 Dose: 400 mg Insulin Human Lispro (Humalog) 0 unit SQ ACHS [facility] PRN Reason: Protocol Last Admin: 11/30/16 08:21 Dose: 4 unit Iron Carb/Multivit/Manager [employer]/Folic Acid (Multivitamin W/Minerals) 1 tab PO DAILY [facility] Last Admin: 11/30/16 10:22 Dose: 1 tab Levothyroxine Sodium (Synthroid) 50 mcg PO ACB [facility] Last Admin: 11/30/16 10:21 Dose: 50 mcg Lisinopril (Zestril) 2.5 mg PO DAILY [facility] Last Admin: 11/30/16 09:14 Dose: Not Given Metformin HCl (Glucophage) 500 mg PO BIDCC [facility] Last Admin: 11/30/16 10:22 Dose: 500 mg Non-Formulary Medication (Metoprolol Tartrate [Metoprolol Tartrate]) 25 mg PO QDAY [facility] Last Admin: 11/30/16 09:13 Dose: Not Given Ondansetron HCl (Zofran) 4 mg IV Q4-6HP PRN PRN Reason: Nausea And Vomiting Last Admin: 11/30/16 10:20 Dose: 4 mg Potassium Chloride (Klor-Con) 40 meq PO DAILYP PRN PRN Reason: K+ < 3.5 Last Admin: 11/30/16 10:22 Dose: 40 meq Potassium/Phosphorus/Sodium (Neutra Phos) 2 packet PO BID [facility] Last Admin: 11/30/16 10:21 Dose: 2 packet Senna/Docusate Sodium (Senna Plus Tablet) 1 tab PO HS [facility] Simvastatin (Zocor) 40 mg PO HS [facility] Sitagliptin Phosphate (Januvia) 50 mg PO DAILY [facility] Last Admin: 11/30/16 10:21 Dose: 50 mg Sodium Chloride (Saline Flush) 10 ml IV Q8 [facility] Tramadol HCl (Ultram) 50 mg PO Q4-6HP PRN PRN Reason: Pain Last Admin: 11/30/16 11:01 Dose: 50 mg Medical - PN: A/P - Time Spent With Patient Total time spent is greater than 50% in coordination of care (as documented) at patient's floor/unit and/or counseling patient: 25 - 35 minutes (1) Severe sepsis with acute organ dysfunction Status: Acute Assessment and plan: * New onset A. fib-secondary to sepsis end organ dysfunction. on metoprolol/ digoxin. rate improved from 160 to 90s. check echo. use flecainide for chemical cardioversion * Severe sepsis acute organ dysfunction . Responding to broad antibiotic coverage. White count down from 18->8 * Complicated Escherichia coli UTI-pansensitive. De-escalate antibiotics. * DM type II-on metformin and sitagliptin/sliding scale insulin * History of hypertension- on metoprolol/lisinopril * Hyperlipidemia on Crestor * Hypothyroidism on thyroxine * DVT prophylaxis on heparin Plan * Rate control measures-IV digoxin/metoprolol. * Attempt chemical cardioversion with flecainide * de-escalate antibiotics * pre-existing medical condition management as above * Continue telemetry monitoring Current Visit: Yes Medical - PN: Qual - VTE Deep Vein Thrombosis/Pulmonary Embolism Present on Admission: No
[2016-11-30] MEDS: FLECAINIDE 50 MG TABLET PO SCH ×2 (12:16→22:12)
[2016-11-30] MEDS ORDERED: IPRATROPIUM 2.5 ML AMPUL.NEB NEB PRN (15:04)
[2016-11-30] MEDS ORDERED: DILTIAZEM 25 MG/5 ML VIAL IV ONE (15:22)
[2016-11-30] MEDS ORDERED: PROMETHAZINE 25 MG/ML VIAL IV PRN (18:46)
[2016-11-30] MEDS ORDERED: PROMETHAZINE 25 MG/ML VIAL ONE (18:53)
[2016-11-30] MEDS ORDERED: SENNOSIDES/DOCUSATE SODIUM 1 TAB TABLET PO SCH (21:00)
[2016-11-30] MEDS ORDERED: SIMVASTATIN 40 MG TABLET PO SCH (21:00)
[2016-11-30] MEDS: DULERA INH SCH (22:38)
[2016-12-01 05:08] LABS: Mean Cell Volume 84.5 fL (80.0-100.0); Mean Corpuscular HGB Conc 32.9 g/dL (31.0-36.0); Mean Corpuscular Hemoglobin 27.8 pg (26.0-34.0); Platelet Count 215 K/mcL (140-440); RBC 3.72 M/mcL (4.00-5.20); Red Cell Distribution Width 15.7 % (11.5-14.5)
[2016-12-01 05:28] LABS: ALT/SGPT 17 U/l (0-40); Albumin 3.1 gm/dL (3.2-5.2); Alkaline Phosphatase 116 U/L (39-117); Bilirubin,Direct < 0.2 mg/dL (0.0-0.3); Blood Urea Nitrogen 10 mg/dl (8-23); Gamma Glutamyl Transpeptidase 87 U/L (5-36); Magnesium 2.1 mg/dL (1.6-2.5); Uric Acid 3.5 mg/dL (2.5-8.0)
[2016-12-01 06:26] LABS: Anisocytosis 1+ (NONE SEEN); Band Neutrophils % 3 % (0-10); Basophils % (Manual) 1 % (0-2); Lymphocytes % 9 % (15-49); Monocytes % (Manual) 10 % (1-9); Platelet Estimate NORMAL (NORMAL); RBC Morphology ABNORM (NORMAL); Rouleaux PRESENT (NONE SEEN); Segmented Neutrophils % 77 % (38-78)
[2016-12-01] MEDS: 0.9 % SODIUM CHLORIDE 10 ML SYRINGE IV SCH ×3 (07:51→20:57)
[2016-12-01] MEDS: HEPARIN 5,000 UNIT/ML VIAL SQ SCH ×2 (07:59→20:49)
[2016-12-01] MEDS: metFORMIN 500 MG TABLET PO SCH ×2 (08:00→16:26)
[2016-12-01] MEDS: MULTIVIT,THER IRON,CA,FA & MIN 1 TABLET PO SCH (08:00)
[2016-12-01] MEDS: NEUTRA PHOS 1 PACKET PO SCH ×2 (08:00→20:48)
[2016-12-01] MEDS: INSULIN LISPRO 1 UNIT/0.01 ML UNIT SQ SCH ×4 (08:00→21:02)
[2016-12-01] MEDS: DOCUSATE SODIUM 100 MG CAPSULE PO SCH ×2 (08:00→20:50)
[2016-12-01] MEDS: CEFEPIME 2 GM in DEXTROSE 5% IN WATER 50 ML IV SCH (08:04)
[2016-12-01] MEDS: DULERA INH SCH ×2 (08:04→20:48)
[2016-12-01] MEDS: sitaGLIPtin 50 MG TABLET PO SCH (08:17)
[2016-12-01] MEDS: LISINOPRIL 5 MG TABLET PO SCH (08:18)
[2016-12-01] MEDS: LEVOTHYROXINE 50 MCG TABLET PO SCH (08:18)
[2016-12-01] MEDS ORDERED: IPRATROPIUM 2.5 ML AMPUL.NEB NEB PRN ×2 (08:45→11:24)
[2016-12-01] MEDS ORDERED: ONDANSETRON 4 MG/2 ML VIAL IV PRN ×2 (08:45→11:24)
[2016-12-01] MEDS ORDERED: POTASSIUM CHLORIDE 20 MEQ PACKET PO PRN ×2 (08:45→11:24)
[2016-12-01] MEDS ORDERED: IBUPROFEN 200 MG TABLET PO PRN ×2 (08:45→11:24)
[2016-12-01] MEDS ORDERED: MAGNESIUM SULFATE 2 GM/50 ML BAG IV PRN ×2 (08:45→11:24)
[2016-12-01] MEDS ORDERED: DEXTROSE 50% 50 ML VIAL IV PRN ×2 (08:45→11:24)
[2016-12-01] MEDS ORDERED: PROMETHAZINE 25 MG/ML VIAL IV PRN ×2 (08:45→11:24)
[2016-12-01] MEDS ORDERED: traMADol 50 MG TABLET PO PRN ×2 (08:45→11:24)
[2016-12-01] MEDS ORDERED: DULERA INH SCH (09:00)
[2016-12-01] MEDS ORDERED: METOPROLOL TARTRATE 25 MG TABLET PO SCH (09:00)
--- NOTE | 2016-12-01 10:13 | Echocardiogram Report ---
ECHOCARDIOGRAM: 2-D and M-mode echocardiography with cardiac Doppler and color flow imaging were performed with a [employer] Aplio MX. (See accompanying M-mode and Doppler reports for quantitation.) INDICATION: New-onset atrial fibrillation. Both atria appeared mildly enlarged. RV and LV cavity size appeared normal. LV systolic performance. Vigorous to hyperdynamic. Estimated ejection fraction 70-75 percent. Aortic root diameter appeared normal. The aortic valve appeared trileaflet and normal. There was no evidence for aortic stenosis or aortic regurgitation by Doppler interrogation. The mitral and tricuspid valves appeared unremarkable. Doppler interrogation of LV inflow disclosed a monophasic spectral dispersion pattern related to absent AV synchrony. There was no evidence for mitral regurgitation. The pulmonic valve was not visualized. Pulmonary artery acceleration time appeared shortened. There was no evidence for pulmonic stenosis or pulmonic regurgitation. There was no evidence for tricuspid regurgitation. No intracardiac shunting was appreciated. There was no evidence of pericardial effusion. The IVC was not well visualized, though did not appear dilated. A regular supraventricular tachycardia, rate 140, was present. CONCLUSION: Mild concentric LVH with vigorous to hyperdynamic systolic performance. Mild LA enlargement. Mild RA enlargement. (See accompanying M-mode and Doppler reports for quantitation). ECHOCARDIOGRAPHY M-MODE CALCULATIONS: HT: 5 feet 0 inches. WT: 218 BSA: 194 NORMALS AORTA: AORTIC ROOT 2.3 2.0-3.7 cm LEFT ATRIUM 3.2 1.9-4.0 cm MITRAL VALVE: EXCURSION 15 1.9-2.7 cm EPSS 0.4 <0.5 cm LT VENTRICLE: LVID (ED) 3.2 3.5-5.7 cm LVID (ES) 2.1 SEPTAL THICKNESS 1.1 0.6-1.1 cm SEPTAL EXCURSION 0.3 0.3-0.8 cm LVPW THICKNESS 1.1 0.6-1.1 cm LVPW EXCURSION 0.9 0.9-1.4 cm MINOR AXIS FS 34 25%-40% RT VENTRICLE: RVID (ED) -- 0.9-2.6 cm(up to 3cm if LLD) QUALITATIVE DOPPLER FLOW STUDIES MITRAL VALVE -- AORTIC VALVE -- TRICUSPID VALVE -- PULMONIC VALVE -- QUANTITATIVE DOPPLER FLOW STUDIES SAMPLE SITES VELOCITIES PEAK PRESSURE VALVE AREA and/or VALVE WINDOW (PEAK,M/SEC) DROP (GRADIENT) PRESSURE HALF-TIME MV (Diastole) 0.8 -- -- MV (Systole) -- -- -- AO (Diastole) -- -- -- AO (Systole) 1.1 -- -- TV (Systole) -- -- -- PV (Systole) 0.8 -- -- PV (Diastole) -- LWG:celestine Job ID: [id number] Doc ID: [id number] Jerod Castillo MD
--- NOTE | 2016-12-01 10:29 | Internal Med Progress Note ---
Medical - PN: Subj Patient information: Note initiated : 12/01/16 at 10:24 am Service Date, if different from initiated Date: [] Patient: Rosa Wilder 71 y/o F admitted on 11/28/16 for Chills, Cough, Vomiting/UTI, Severe Sepsis. Chief Complaint: [] Interval history: 11/28- patient admitted with septic shock/complicated UTI ith extensive pyuria. Admitted to ICU. Aggressive crystalloids to keep map at goal. negative renal ultrasound. await culture sensitivities. Septic shock management per guidelines. white count 18.5. acute renal failure creatinine 1.4 11/29- patient doing well. No overnight events. No concerns per staff. improved mentation. persistent tachycardia but stable hemodynamics. Map at goal. escherichia coli on urine culture. white count down to11.5. creatinine improved to 1.1. low phosphorus and magnesium start replacement. 11/30- patient complaining of chest palpitation. New onset A. fib with RVR. Transfer to telemetry. And started on metoprolol along with digoxin load. Check echocardiogram. likely precipitated by his sepsis. continue telemetry monitoring and rate control measures. Overall clinically improved with white count down to 8000 from 18. Creatinine improved to 1.2. electrolytes improved with replacement. Patient has been anxious but afebrile and hemodynamically stable. No overnight fever chills or concerns per staff other than chest palpitation during episodes of RVR. 12/01- patient converted to sinus. Flecainide/digoxin/diltiazem discontinued. pansensitive Escherichia coli on cultures. switch to oral antibiotics on discharge likely in 24 hours. Remarkable clinical improvement. Transfer to medical floor. Await SNF transfer in a.m. due to significant deconditioning and weakness. leukocytosis resolved now at 6.6 from 18.8. renal function at baseline creatinine 1.1. stable hemodynamics and vitals. - Constitutional Vitals: Vital Signs Temp Pulse Resp BP Pulse Ox 97.4 F L 74 20 133/69 94 12/01/16 04:00 12/01/16 04:00 12/01/16 04:00 12/01/16 04:00 12/01/16 04:00 Period Temp Pulse Resp BP Sys/Tovar Pulse Ox Last 24 Hr 97.4 F-98.4 F 73-86 20-21 108-133/69-86 94-96 Intake and Output 11/30/16 12/01/16 12/01/16 21:59 05:59 13:59 Intake Total 600 / 600 375 / 375 Output Total 900 / 900 1200 / 1200 Balance -300 / -300 -825 / -825 Weight 213 lb 12.8 oz Intake & Output: Intake & Output 11/30/16 12/01/16 12/01/16 21:59 05:59 13:59 Intake Total 600 / 600 375 / 375 Output Total 900 / 900 1200 / 1200 Balance -300 / -300 -825 / -825 Weight 213 lb 12.8 oz Intake: Oral 600 / 600 375 / 375 Output: Void Amount 600 / 600 1200 / 1200 Emesis 300 / 300 Other: Meal Dinner Percent of Meal Consumed 50% Feeding Ability Assist with Tray Set Up # Voids 1 # Emeses 1 General appearance: cooperative, no acute distress Exam: alert oriented nonlabored breathing Back in sinus rhythm Significant weakness Medical - PN: Obj Da - Labs CBC & Chem 7: 12/01/16 03:35 12/01/16 03:35 Labs: Abnormal Lab Results 12/01/16 12/01/16 11/30/16 03:35 03:35 04:00 WBC RBC 3.72 L Hgb 10.3 L Hct 31.4 L RDW 15.7 H Seg Neutrophils % Lymphocytes % 9 L Monocytes % (Manual) 10 H RBC Morphology Abnorm A Anisocytosis 1+ A Rouleaux Present A Carbon Dioxide Anion Gap Creatinine 1.2 H Glucose 145 H 307 H Calcium Phosphorus 2.5 L Magnesium GGT 87 H 78 H Total Protein Albumin 3.1 L Albumin/Globulin Ratio 0.9 L Triglycerides 190 H 11/30/16 11/29/16 11/29/16 04:00 03:53 03:53 WBC 11.5 H RBC 3.74 L 3.59 L Hgb 10.4 L 10.0 L Hct 31.5 L 30.7 L RDW 15.8 H 15.5 H Seg Neutrophils % 81 H 81 H Lymphocytes % 8 L 6 L Monocytes % (Manual) 10 H 10 H RBC Morphology Anisocytosis Rouleaux Carbon Dioxide 21 L Anion Gap 17.0 H Creatinine Glucose 255 H Calcium 8.0 L Phosphorus 2.3 L Magnesium 1.4 L GGT 84 H Total Protein 5.8 L Albumin 3.0 L Albumin/Globulin Ratio Triglycerides Meds: Medications Dextrose (Dextrose 50%) 0 ml IV UD PRN PRN Reason: Hypoglycemia Diagnostic Test (Pha) (Accu-Chek) 1 each FS ACHS [facility] Docusate Sodium (Colace) 100 mg PO BID [facility] Heparin Sodium (Porcine) (Heparin) 5,000 unit SQ Q12 [facility] Cefepime HCl 2 gm/ Dextrose 50 mls @ 100 mls/hr IV DAILY [facility] Magnesium Sulfate (Magnesium Sulfate) 2 gm in 50 mls @ 50 mls/hr IV UD PRN PRN Reason: MG = or < 1.7 Ibuprofen (Motrin) 400 mg PO Q4HP PRN PRN Reason: Pain Insulin Human Lispro (Humalog) 0 unit SQ ACHS [facility] PRN Reason: Protocol Ipratropium [place] (Atrovent) 2.5 ml NEB Q4HP PRN PRN Reason: Wheezing Iron Carb/Multivit/[place]/Folic Acid (Multivitamin W/Minerals) 1 tab PO DAILY [facility] Levothyroxine Sodium (Synthroid) 50 mcg PO ACB [facility] Lisinopril (Zestril) 2.5 mg PO DAILY [facility] Metformin HCl (Glucophage) 500 mg PO BIDCC [facility] Ondansetron HCl (Zofran) 4 mg IV Q4-6HP PRN PRN Reason: Nausea And Vomiting Dulera(Mometasone Furote/Formoterol Fumarate Dihydrate) Inhaler 2 dose INH BID [facility] Potassium Chloride (Klor-Con) 40 meq PO DAILYP PRN PRN Reason: K+ < 3.5 Potassium/Phosphorus/Sodium (Neutra Phos) 2 packet PO BID [facility] Promethazine HCl (Phenergan) 0 mg IV Q4HP PRN PRN Reason: Nausea And Vomiting Senna/Docusate Sodium (Senna Plus Tablet) 1 tab PO HS [facility] Simvastatin (Zocor) 40 mg PO HS [facility] Sitagliptin Phosphate (Januvia) 50 mg PO DAILY [facility] Sodium Chloride (Saline Flush) 10 ml IV Q8 [facility] Tramadol HCl (Ultram) 50 mg PO Q4-6HP PRN PRN Reason: Pain Medical - PN: A/P - Time Spent With Patient Total time spent is greater than 50% in coordination of care (as documented) at patient's floor/unit and/or counseling patient: 15 - 24 minutes (1) Severe sepsis with acute organ dysfunction Status: Acute Assessment and plan: * Complicated Escherichia coli UTI-pansensitive. switch to oral antibiotics on discharge and continue through 12/04 * Severe sepsis acute organ dysfunction . Responding to broad antibiotic coverage. White count down from 18->8->6.6 * New onset A. fib- Back in sinus post flecainide. secondary to sepsis induced end organ dysfunction. * DM type II-on metformin and sitagliptin/sliding scale insulin * History of hypertension- on metoprolol/lisinopril * Hyperlipidemia on Crestor * Hypothyroidism on thyroxine * DVT prophylaxis on heparin Plan * antibiotics through 12/04-Pansensitive Escherichia coli * pre-existing medical condition management as above * transfer to medical floor * SNF transfer in a.m. in light of significant deconditioning and weakness Current Visit: Yes Medical - PN: Qual - VTE Deep Vein Thrombosis/Pulmonary Embolism Present on Admission: No
[2016-12-01] MEDS ORDERED: INSULIN LISPRO 1 UNIT/0.01 ML UNIT SQ SCH (11:30)
[2016-12-01] MEDS ORDERED: MAGNESIUM HYDROXIDE 30 ML ORAL.SUSP PO ONE (12:26)
[2016-12-01] MEDS ORDERED: 0.9 % SODIUM CHLORIDE 10 ML SYRINGE IV SCH (14:00)
[2016-12-01] MEDS ORDERED: metFORMIN 500 MG TABLET PO SCH (17:30)
[2016-12-01] MEDS ORDERED: valACYclovir 1,000 MG TABLET PO SCH (21:00)
[2016-12-01] MEDS ORDERED: NEUTRA PHOS 1 PACKET PO SCH (21:00)
[2016-12-01] MEDS ORDERED: DOCUSATE SODIUM 100 MG CAPSULE PO SCH (21:00)
[2016-12-01] MEDS ORDERED: SENNOSIDES/DOCUSATE SODIUM 1 TAB TABLET PO SCH ×2 (21:00)
[2016-12-01] MEDS ORDERED: SIMVASTATIN 40 MG TABLET PO SCH ×2 (21:00)
[2016-12-01] MEDS ORDERED: HEPARIN 5,000 UNIT/ML VIAL SQ SCH (21:00)
[2016-12-02] MEDS: 0.9 % SODIUM CHLORIDE 10 ML SYRINGE IV SCH (05:15)
[2016-12-02 06:45] LABS: Mean Cell Volume 84.6 fL (80.0-100.0); Mean Corpuscular HGB Conc 32.8 g/dL (31.0-36.0); Mean Corpuscular Hemoglobin 27.8 pg (26.0-34.0); Platelet Count 245 K/mcL (140-440); RBC 3.93 M/mcL (4.00-5.20); Red Cell Distribution Width 15.8 % (11.5-14.5)
[2016-12-02] MEDS: INSULIN LISPRO 1 UNIT/0.01 ML UNIT SQ SCH ×2 (07:16→11:40)
[2016-12-02 07:24] LABS: ALT/SGPT 19 U/l (0-40); Albumin 3.3 gm/dL (3.2-5.2); Alkaline Phosphatase 121 U/L (39-117); Bilirubin,Direct < 0.2 mg/dL (0.0-0.3); Blood Urea Nitrogen 13 mg/dl (8-23); Gamma Glutamyl Transpeptidase 87 U/L (5-36); Magnesium 1.8 mg/dL (1.6-2.5); Phosphorous 3.6 mg/dL (2.7-4.5); Uric Acid 3.7 mg/dL (2.5-8.0)
[2016-12-02] MEDS ORDERED: LEVOTHYROXINE 50 MCG TABLET PO SCH ×2 (07:30)
[2016-12-02] MEDS: metFORMIN 500 MG TABLET PO SCH (08:45)
[2016-12-02] MEDS: DOCUSATE SODIUM 100 MG CAPSULE PO SCH (08:46)
[2016-12-02] MEDS: HEPARIN 5,000 UNIT/ML VIAL SQ SCH (08:46)
[2016-12-02] MEDS: NEUTRA PHOS 1 PACKET PO SCH (08:47)
[2016-12-02] MEDS: DULERA INH SCH (08:53)
[2016-12-02 08:54] LABS: Anisocytosis FEW (NONE SEEN); Eosinophils % (Manual) 3 % (0-7); Lymphocytes % 24 % (15-49); Monocytes % (Manual) 8 % (1-9); Myelocytes % 1 % (0-0); Platelet Estimate NORMAL (NORMAL); RBC Morphology ABNORM (NORMAL); Segmented Neutrophils % 64 % (38-78)
[2016-12-02] MEDS ORDERED: sitaGLIPtin 50 MG TABLET PO SCH ×2 (09:00)
[2016-12-02] MEDS ORDERED: MULTIVIT,THER IRON,CA,FA & MIN 1 TABLET PO SCH ×2 (09:00)
[2016-12-02] MEDS ORDERED: valACYclovir 500 MG TABLET PO SCH (09:00)
[2016-12-02] MEDS ORDERED: CEFEPIME 2 GM in DEXTROSE 5% IN WATER 50 ML IV SCH ×2 (09:00)
[2016-12-02] MEDS ORDERED: LISINOPRIL 5 MG TABLET PO SCH ×2 (09:00)
--- NOTE | 2016-12-02 11:08 | Discharge Summary ---
Medical - DS: Prov Patient information: Note initiated : 12/02/16 at 11:05 am Service Date, if different from initiated Date: [] Patient: Rosa Wilder 71 y/o F admitted on 11/28/16 for Chills, Cough, Vomiting/UTI, Severe Sepsis. Chief Complaint: [] Date of admission: 11/28/16 17:05 Discharge date: 12/02/16 Primary care physician: [f_Reg Prim Care Provider] Admitting clinician: Savage Porter Discharging clinician: Aixa Beck Medical - DS: Meds - Discharge Medications Prescriptions: Cephalexin [Keflex] 500 mg PO BID #20 capsule metFORMIN [Glucophage] 1,000 mg PO BIDCC #60 tablet Active and Home Medications: Home Medications Albuterol Sulfate [Proair Hfa] 8.5 gm IH Q4-6HP PRN 11/28/16 [History Confirmed 11/28/16 Last Taken Unknown] Benzonatate 100 mg PO TID 11/28/16 [History Confirmed 11/28/16 Last Taken Unknown] Levothyroxine Sodium [Synthroid] 50 mcg PO DAILY 11/28/16 [History Confirmed 11/15 Last Taken Unknown] Metoprolol Tartrate 25 mg PO QDAY 11/28/16 [History Confirmed 11/28/16 Last Taken Unknown] Mometasone/Formoterol [Dulera 200 Mcg/5 Mcg Inhaler] 2 puff IH BID 11/28/16 [ History Confirmed 11/28/16 Last Taken Unknown] Naproxen 500 mg PO BID 11/28/16 [History Confirmed 11/28/16 Last Taken Unknown] Ramipril [Altace] 1.25 mg PO DAILY 11/28/16 [History Confirmed 11/28/16 Last Taken Unknown] Rosuvastatin [Crestor] 10 mg PO HS 11/28/16 [History Confirmed 11/28/16 Last Taken Unknown] metFORMIN [Glucophage] 500 mg PO BIDCC 11/28/16 [History Confirmed 11/28/16 Last Taken Unknown] Medical - DS: Hosp Hospital course: Mr. Wilder is a 71 year old female who was admitted to the hosptal for sepsis and complicated UTI See below for hospital course. 3/2- patient admitted with septic shock/complicated UTI with extensive pyuria. Admitted to ICU. Aggressive crystalloids to keep map at goal. negative renal ultrasound. await culture sensitivities. Septic shock management per guidelines. white count 18.5. acute renal failure creatinine 1.4 11/29- patient doing well. No overnight events. No concerns per staff. improved mentation. persistent tachycardia but stable hemodynamics. Map at goal. escherichia coli on urine culture. white count down to11.5. creatinine improved to 1.1. low phosphorus and magnesium start replacement. 11/30- patient complaining of chest palpitation. New onset A. fib with RVR. Transfer to telemetry. And started on metoprolol along with digoxin load. Check echocardiogram. likely precipitated by his sepsis. continue telemetry monitoring and rate control measures. Overall clinically improved with white count down to 8000 from 18. Creatinine improved to 1.2. electrolytes improved with replacement. Patient has been anxious but afebrile and hemodynamically stable. No overnight fever chills or concerns per staff other than chest palpitation during episodes of RVR. 12/01- patient converted to sinus. Flecainide/digoxin/diltiazem discontinued. pansensitive Escherichia coli on cultures. switch to oral antibiotics on discharge likely in 24 hours. Remarkable clinical improvement. Transfer to medical floor. Await SNF transfer in a.m. due to significant deconditioning and weakness. leukocytosis resolved now at 6.6 from 18.8. renal function at baseline creatinine 1.1. stable hemodynamics and vitals. 12/02 Patient doing well, no acute overnight events, no complaints. Denies CP, Sob , headache, palpitatiosn or dizziness. Eager to be Discharged. Given her Weakness due to acute infection will be d/c to SNF for further therapy. UTI/ Sepsis - Treated with cefepime and levoflox, Charis freed, switch to keflex at discharge, Keflex 500mg bid for 10 more days, dose adjusted for renal function. Afib with RVR due to sepsis in the hospital, high chads vasc score, if recurs as outpatient consider cardiology eval/ anticoagulation. Diabetes- Glucose level was high in the hospital likely from sepsis, dose of metformin was increased from 500mg bid to 1000mg bid, to be monitored by pcp and dose adjusted as per response. Discharge diagnosis: Sepsis/ UTI - Time Spent with Patient Total time spent providing and/or coordinating discharge services: Greater than 30 minutes Medical - DS: Exam - Constitutional Vitals: Vital Signs Temp Pulse Pulse Pulse Resp BP BP 12/02/16 08:00 98.3 F 88 18 145/81 12/02/16 03:46 98.4 F 86 18 121/75 12/01/16 23:14 98.6 F 100 H 20 127/82 12/01/16 19:07 97.8 F 100 H 18 154/75 12/01/16 16:00 98.8 F 20 151/89 12/01/16 12:00 98.6 F 84 18 139/81 Pulse Ox 12/02/16 08:00 97 12/02/16 03:46 97 12/01/16 23:14 94 12/01/16 19:07 99 12/01/16 16:00 94 12/01/16 12:00 96 Intake and Output 12/01/16 12/02/16 12/02/16 21:59 05:59 13:59 Intake Total 360 / 360 710 / 710 250 / 250 Balance 360 / 360 710 / 710 250 / 250 Intake: IV 50 / 50 Dextrose 5% in Water 50 50 / 50 ml @ 100 mls/hr IV DAILY [facility] with Maxipime 2 gm Rx #:[id number] Oral 360 / 360 710 / 710 200 / 200 Other: # Voids 1 3 1 # Bowel Movements 1 Weight 211 lb Additional comments: Constitutional; Afebrile, cooperative, alert, not in distress. Eyes- No icterus, Pupils equal, reactive, No periorbital swelling Ears- Ext ear normal, hearing normal to conversation. Neck- Midline trachea, supple Respiratory system: Air Entry equal on both sides, No crackles or wheezing, no rhonchi. CVS- Rate rhythm regular, S1,S2 heard, no gallop, no rub. Abdomen- Soft nontender abdomen, no organomegaly, no tenderness, no guarding or rigidity, [employer] ADMINISTRATOR- AOOx3, moving all extremities, no focal deficit noted. Medical - DS: Data Labs on day of discharge: Labs from last 24 hours 12/02/16 12/02/16 04:00 04:00 WBC 7.2 RBC 3.93 L Hgb 10.9 L Hct 33.2 L MCV 84.6 MCH 27.8 MCHC 32.8 RDW 15.8 H Plt Count 245 MPV 8.9 Total Counted 100 Seg Neutrophils % 64 Band Neutrophils % Not Reportable Lymphocytes % 24 Monocytes % (Manual) 8 Eosinophils % (Manual) 3 Myelocytes % 1 H Platelet Estimate Normal RBC Morphology Abnorm A Anisocytosis Few A Sodium 136 Potassium 3.5 Chloride 96 Carbon Dioxide 26 Anion Gap 14.0 BUN 13 Creatinine 1.2 H GFR Calculation 46 Glucose 205 H Uric Acid 3.7 Calcium 8.9 Phosphorus 3.6 Magnesium 1.8 Total Bilirubin 0.3 Direct Bilirubin < 0.2 GGT 87 H AST 10 ALT 19 Alkaline Phosphatase 121 H Lactate Dehydrogenase 223 Total Protein 6.5 Albumin 3.3 Globulin 3.2 Albumin/Globulin Ratio 1.0 Triglycerides 170 H Preliminary micro results at discharge 11/28/16 20:55 Blood Culture - Preliminary Blood 11/28/16 20:58 Blood Culture - Preliminary Blood Medical - DS: A/P - Patient/Caregiver Discharge Instructions Activity: as per physical therapy, increase activity as tolerated Diet: Consistent Carbohydrate Additional Instructions: Follow up with PCP in 7-10 days. Go back to the ER if worsening condition, Chest pain, or shortness of breath. - Follow up Plan Follow up with: Gino Ordaz MD [Primary Care Provider] - Disposition: Xfer SNF Prognosis: Fair Rehab Potential: Fair I certify that the patient requires SNF services: Yes Overall status at discharge: patient is progressing back to baseline Medical - DS: Qual - VTE Deep Vein Thrombosis/Pulmonary Embolism Present on Admission: No
== END 2016-12-02 14:06 | DRG 871 ==
LOC: ED 11:09 → ICU 17:00 → MEDSUR 11-29 19:40 → ICU 11-30 07:23 → MEDSUR 12-01 14:10
PROVIDERS: ADMIT Internal Medicine; ATTEND Internal Medicine

== ENCOUNTER 2025-08-10 09:49 | Observation (INO) ==
[2025-08-10] MEDS ORDERED: TRANEXAMIC ACID 1,000 MG/10 ML VIAL ONE (10:21)
[2025-08-10] MEDS ORDERED: DEXAMETHASONE 10 MG/ML VIAL ONE (10:21)
[2025-08-10] MEDS ORDERED: ONDANSETRON 4 MG/2 ML VIAL ONE (10:21)
[2025-08-10] MEDS ORDERED: LIDOCAINE 2% PF 5 ML VIAL ONE (10:21)
[2025-08-10] MEDS ORDERED: GLYCOPYRROLATE 0.2 MG/ML VIAL IV ONE (10:21)
[2025-08-10] MEDS ORDERED: PROPOFOL 200 MG/20 ML VIAL IV ONE ×3 (10:22→12:21)
[2025-08-10] MEDS: CELECOXIB 200 MG CAPSULE PO SCH (10:39)
[2025-08-10] MEDS: oxyCODONE 10 MG TAB.ER.12H PO SCH (10:40)
[2025-08-10] MEDS: PREGABALIN 75 MG CAPSULE PO SCH (10:40)
[2025-08-10] MEDS ORDERED: MIDAZOLAM 2 MG/2 ML VIAL ONE (11:29)
[2025-08-10] MEDS: ceFAZolin 2 GM in DEXTROSE 5% IN WATER 50 ML IV SCH (11:31)
[2025-08-10] MEDS ORDERED: PHENYLephrine 1 MG/10 ML SYRINGE (ANEST) ONE (12:35)
[2025-08-10] MEDS ORDERED: ePHEDrine 50 MG/5 ML SYRINGE (ANEST) IV ONE (12:35)
[2025-08-10] MEDS ORDERED: FAMOTIDINE/PF 20 MG/2 ML VIAL IV ONE (13:16)
[2025-08-10] MEDS ORDERED: ONDANSETRON 4 MG/2 ML VIAL IV PRN (13:21)
[2025-08-10] MEDS ORDERED: IPRATROPIUM/ALBUTEROL 3 ML AMPUL.NEB NEB PRN (13:21)
[2025-08-10] MEDS ORDERED: fentaNYL 100 MCG/2 ML VIAL IV PRN (13:21)
[2025-08-10] MEDS ORDERED: DEXTROSE 31 GM ORAL.SUSP PO PRN (13:33)
[2025-08-10] MEDS ORDERED: MAGNESIUM HYDROXIDE 30 ML ORAL.SUSP PO PRN (13:33)
[2025-08-10] MEDS ORDERED: DEXTROSE 50% 50 ML VIAL IV PRN (13:33)
[2025-08-10] MEDS ORDERED: BENZOCAINE/MENTHOL 1 LOZENGE PO PRN (13:33)
[2025-08-10] MEDS ORDERED: ALBUTEROL SULFATE 60 PUFF INHALER INH PRN (13:57)
[2025-08-10] MEDS ORDERED: Triamcinolone Acetonide 0.1 % ointment TOPICAL PRN (13:58)
[2025-08-10] MEDS: TRANEXAMIC ACID 1,000 MG/10 ML VIAL IV ONE (13:59)
[2025-08-10] MEDS: ONDANSETRON 4 MG/2 ML VIAL IV PRN (14:27)
[2025-08-10] MEDS: 0.9 % SODIUM CHLORIDE 10 ML SYRINGE IV SCH (15:01)
[2025-08-10] MEDS: 0.9 % SODIUM CHLORIDE 1,000 ML IV SCH (15:05)
[2025-08-10] MEDS: KETOROLAC 15 MG/ML VIAL IV PRN (15:23)
[2025-08-10] MEDS: INSULIN LISPRO 1 UNIT/0.01 ML UNIT SQ SCH (17:55)
[2025-08-10] MEDS: ASPIRIN 81 MG TAB.CHEW CHEWED SCH (21:55)
[2025-08-10] MEDS: DOCUSATE SODIUM 100 MG CAPSULE PO SCH (21:55)
[2025-08-10] MEDS: ATORVASTATIN 40 MG TABLET PO SCH (21:56)
[2025-08-11] MEDS: LEVOTHYROXINE 88 MCG TABLET PO SCH (07:05)
[2025-08-11] MEDS: MULTIVIT,THER IRON,CA,FA & MIN 1 TABLET PO SCH (09:26)
[2025-08-11] MEDS: RAMIPRIL 2.5 MG CAPSULE PO SCH ×2 (09:27→21:32)
[2025-08-12 11:58] VITALS: O2SAT 98
[2025-08-12 12:08] VITALS: TEMP 97.9
== END 2025-08-12 11:38 | disposition home or self-care (01) ==
LOC: SUR 09:49 → MEDSUR 09:49
PROVIDERS: ADMIT Orthopaedic Surgery; ATTEND Orthopaedic Surgery